=== PATIENT | female | born 1985 | race Caucasian/White ===

== ENCOUNTER → 2019-10-01 10:27 | Outpatient (BNVA) | payer OTHER, SELFPAY | PROVIDERS: Family Provider Electrodiagnostic Medicine; PCP Electrodiagnostic Medicine; Visit Provider Nurse Practitioner Family | DX: J06.9 Acute upper respiratory infection, unspecified (principal); R05 Cough | CPT/HCPCS: 87804 ==

== ENCOUNTER → 2020-03-07 14:00 | Outpatient (BNVA) | payer OTHER, SELFPAY | PROVIDERS: Family Provider Electrodiagnostic Medicine; PCP Electrodiagnostic Medicine; Visit Provider Podiatrist Foot & Ankle Surgery | DX: M79.671 Pain in right foot (principal); M25.571 Pain in right ankle and joints of right foot | CPT/HCPCS: 73600; 73630 ==

== ENCOUNTER → 2020-05-03 15:23 | Outpatient (BNVA) | payer OTHER, SELFPAY | PROVIDERS: Family Provider Electrodiagnostic Medicine; PCP Electrodiagnostic Medicine; Referring Provider Dermatology; Visit Provider Dermatology | DX: L71.9 Rosacea, unspecified (principal); D22.9 Melanocytic nevi, unspecified; L85.8 Other specified epidermal thickening | CPT/HCPCS: 99203; 99204 ==

== ENCOUNTER 2020-08-13 11:59 | Emergency (ER) | payer OTHER, SELFPAY ==
[2020-08-13] VITALS (10 sets, daily range): BP systolic 101–127; BP diastolic 70–88; PULSE 92–126; RESP 15–20; TEMP 37.2; O2SAT 95–97; BMI 43.0
--- NOTE | 2020-08-13 12:33 | XRR_ITS ---
PROCEDURE INFORMATION: Exam: XR Chest, 1 View Exam date and time: 08/13/2020 1:21 PM Age: 35 years old Clinical indication: Shortness of breath; Additional info: Covid infection TECHNIQUE: Imaging protocol: XR of the chest Views: 1 view. COMPARISON: CR Chest 1 [place] [id number] 11/10/2016 1:41 PM FINDINGS: Lungs: Unremarkable. No consolidation. Pleural space: Unremarkable. No pleural effusion. No pneumothorax. Heart/Mediastinum: Unremarkable. No cardiomegaly. Bones/joints: Unremarkable. XR/XR chest 1V portable [id number] IMPRESSION: No acute findings.
--- NOTE | 2020-08-13 12:49 | ECG_ITS ---
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
--- NOTE | 2020-08-13 12:50 | W.ED.COVID ---
HPI - COVID General: Chief Complaint: COVID symptoms Stated Complaint: Covid +/dehydrated/trouble eating Time Seen by Provider: 08/13/20 12:43 Source: patient Mode of arrival: ambulatory Limitations: no limitations Triage information: Has fever, cough or shortness of breath. Exposure to COVID + person last 14 days History of Present Illness: HPI Narrative: Ms. Kirkpatrick is a nice 35-year-old female who comes in complaining of nausea, vomiting, diarrhea and decreased appetite. The patient has had decreased appetite as well. Patient states that she feels extremely dehydrated. She has had persistent diarrhea. Of note the patient is on prednisone daily for polymyalgia rheumatica. She did not have her steroids increased during this time. She was seen at [facility] where she tested positive and was told she has an ear infection and was started on Zithromax. Patient denies any other complaints or concerns at this time. She is unaware of any exacerbating or alleviating factors. COVID 19 common symptoms: positive fever(s), chills, non-productive cough, dyspnea, fatigue, body aches, nausea and diarrhea; negative productive cough, headache(s), throat pain or vomiting COVID 19 other sytmptoms: negative chest pain or confusion COVID Results: No Data to Display Review of Systems Const: Reports: fever(s), chills, body aches, fatigue and malaise; Denies: diaphoresis Eyes: Denies: change in vision, blurry vision, photophobia, eye discomfort, eye discharge, eye redness or yellow eyes ENMT: Denies: throat pain, odynophagia, hoarseness, swelling of lips/tongue, ear or mastoid pain, ear discharge, change in hearing or nasal discharge Card: Denies: chest pain, palpitations, irregular heart rhythm, edema, lightheadedness, syncope, pre-syncope, dyspnea on exertion or orthopnea Resp: Reports: dyspnea and non-productive cough; Denies: productive cough, wheezing, hemoptysis or chest congestion GI: Reports: nausea and diarrhea; Denies: abdominal pain, vomiting, hematemesis, coffee ground emesis, heartburn, constipation, GI cramping, hematochezia or melena : Denies: flank pain, dysuria, urinary frequency, urinary urgency or hematuria Musc: Denies: neck pain, back pain, extremity pain, extremity swelling, joint pain, joint swelling, joint redness, joint warmth or joint stiffness Skin/Breast: Denies: rash, pruritus, erythema, skin pain or skin tenderness Neuro: Denies: headache(s), numbness in extremities, weakness in extremities, sensory changes, lack of coordination, difficulty walking, dizziness, vertigo, confusion, Slurred speech present or seizure-like activity Hayes/Lymph: Denies: easy bruising, easy bleeding, petechiae, purpura or enlarged lymph nodes All/Imm: Denies: urticaria, throat swelling, tongue swelling, facial swelling or acute wheezing PFSH ED PFSH: Medical History (Updated 08/13/20 @ 18:04 by Flakita Joya) Anxiety Asthma Atypical migraine H/O polymyalgia rheumatica Surgical History (Updated 08/13/20 @ 12:51 by Flakita Joya) History of hysterectomy Family History Other Hypertension Social History Smoking and tobacco status: never smoked Alcohol intake: never History of recent travel: No Physical Exam Const: COMMON NORMALS: no acute distress, patient oriented x3, no limitations and alert GENERAL APPEARANCE: cooperative HENMT: COMMON NORMALS: normocephalic, atraumatic, external ears normal, EAC's normal and Normal external nose present HEAD & SCALP: normal to inspection, normocephalic and atraumatic FACE & SINUS: normal facial exam and face symmetric NOSE: Normal external nose present and Normal nares present EXTERNAL EAR: Yes external ears normal EXTERNAL AUDITORY CANAL: EAC's normal MOUTH: Normal oral and palatal mucosa present, lip normal and tongue normal Eye: COMMON NORMALS: Equal, round and reactive pupils present and conjunctivae normal GENERAL EYE: appearance normal, both eyes and all related structures ALIGNMENT: Yes alignment normal PERIORBITAL: periorbital findings normal EYELID: eyelids normal CONJUNCTIVA: Yes conjunctivae normal SCLERA: sclerae normal PUPIL: Yes Equal, round and reactive pupils present Neck/C-Spine: COMMON NORMALS: full ROM, no lymphadenopathy, supple, no meningeal signs and no JVD GENERAL: Yes normal visual inspection and Yes trachea midline Chest: COMMONS NORMALS: normal inspection of the chest and normal palpation of entire chest wall Resp: COMMON NORMALS: normal respiratory effort, No retractions, No use of accessory muscles and clear to auscultation bilaterally EFFORT & INSPECTION: Yes able to speak in complete sentences and Yes symmetric chest movement AUSCULTATION: clear to auscultation bilaterally, no crackles, no rales, no rhonchi and no wheezes Cardio: COMMON NORMALS: no JVD, regular rate, regular rhythm, S1 normal heart sound present and S2 normal heart sound present RATE: regular rate RHYTHM: regular rhythm HEART SOUNDS: S1 normal heart sound present, S2 normal heart sound present, no click, no gallops, no murmurs and no rubs GI: COMMON NORMALS: Soft to palpation and No hepatosplenomegaly present PALPATION: Yes Soft to palpation, No Tenderness to palpation present (GI), No Guarding due to palpation present (GI), No Rigid due to palpation, Yes No hepatosplenomegaly present, No Hernia present, No Palpable mass present and No Pulsatile mass present : COMMON NORMALS: Yes no CVA tenderness BLADDER/KIDNEY EXAM: Yes no CVA tenderness EXTERNAL FEMALE EXAM: No Hernia present Back/Pelvis: COMMON NORMALS: no CVA tenderness, thoracic and lumbar spine normal to inspection, no thoracic nor lumbar tenderness and thoraco-lumbar ROM normal Extremity: COMMON NORMALS: normal to inspection, full ROM, capillary refill normal, no joint enlargement, no clubbing, cyanosis or edema and no calf tenderness Neuro: COMMON NORMALS: patient oriented x3, CN's II-XII intact bilaterally, moves all extremities, no focal motor deficits and no sensory deficits noted SENSORIUM/ORIENTATION: Yes alert MENINGEAL SIGNS: Yes no meningeal signs SPEECH: speech normal Psych: COMMON NORMALS: mental status grossly normal, Normal thought process present, cooperative, normal affect, speech normal and activity/motor behavior normal SPEECH: Yes normal speech THOUGHT PROCESS: Normal thought process present Skin: COMMON NORMALS: no rashes or lesions noted, turgor normal, no jaundice, no petechiae and no mottling GENERAL SKIN EXAM: no rashes or lesions noted and turgor normal Course Vital Signs: Vital signs: Vital Signs Temperature 99.0 F 08/13/20 12:32 Pulse Rate 106 H 08/13/20 14:35 Respiratory Rate 20 H 08/13/20 14:28 Blood Pressure 115/88 08/13/20 13:18 Pulse Oximetry 97 08/13/20 14:28 MDM - COVID MDM Narrative: Medical decision making narrative: 1632 -patient is feeling better and would like to go home. She understands we will have to finish the potassium infusion to recheck this. She agrees to recheck this at that time. 1803 - Medical Records: Attestation: I reviewed the patient's medical records. Lab Data: Attestation: I reviewed the patient's lab results. Labs: Lab Results 08/13/20 08/13/20 08/13/20 Range/Units 13:21 13:23 13:23 WBC 4.3 (4.0-10.0) 10^3/ uL RBC 5.91 H (4.1-5.3) 10^6/u L Hgb 18.0 H (11.5-15.3) g/dL Hct 50.4 H (37.0-47.0) % MCV 85.3 (81-99) fL MCH 30.5 (28.0-34.0) pg MCHC 35.7 (30.0-36.0) g/dL RDW 11.9 L (12.1-15.1) % Plt Count 190 (130-400) 10^3/c mm MPV 10.9 H (7.4-10.4) fL Neut % (Auto) 56.6 % Lymph % (Auto) 34.5 % [place] % (Auto) 8.2 % Eos % (Auto) 0.0 % Baso % (Auto) 0.5 % Neut # (Auto) 2.43 (1.8-7.7) 10^3/u L Lymph # (Auto) 1.5 (0.8-4.8) 10^3/u L [place] # (Auto) 0.4 (0.2-0.9) 10^3/u L Eos # (Auto) 0.0 (0.0-0.8) 10^3/u L Baso # (Auto) 0.0 (0.0-0.1) 10^3/u L Nucleated RBC % (a uto) 0 % Nucleated RBCs # 0.0 /100WBC PT (12.1-14.9) SECO NDS INR (0.8-1.2) Fibrinogen (174-498) mg/dL D-Dimer (0-0.59) ug/mIFE U Specimen Type Arterial Sample Site Radial, right ABG pH 7.54 H (7.35-7.45) ABG pCO2 27.6 L (35-45) mmHg ABG pO2 89.2 (80.0-100.0) mmH g ABG HCO3 23.4 (22-26) mmol/L ABG Base Excess 2.4 H (-2.0-2.0) mmol/ L Maurilio Test Pos Hematocrit 57.7 H (37-47) % O2 Delivery Device Room air FiO2 21.0 % Cash Van Salesperson ID [place]ro Sodium 133 L (136-145) mmol/L Potassium 2.7 L* (3.5-5.1) mmol/L Chloride 93 L (98-107) mmol/L Carbon Dioxide 25 (22-29) mmol/L Anion Gap 17.7 (5-19) BUN 8 (6-20) mg/dL Creatinine 0.8 (0.5-0.9) mg/dL GFR Calculation 81.2 L (90-130) mL/min Glucose 115 (65-115) mg/dL Calculated Osmolal ity 275 L (285-295) mOsm/k g Lactic Acid (0.5-2.2) mmol/L Calcium 8.9 (8.5-10.5) mg/dL Magnesium 1.9 (1.7-2.3) mg/dL Total Bilirubin 0.3 (0.15-1.2) mg/dL AST 28 (0-32) U/L ALT 44 H (0-33) U/L Alkaline Phosphata se 50 (35-105) IU/L Lactate Dehydrogen ase 308 H (135-214) U/L Troponin T Gen 5 n g/L C-Reactive Protein 33.7 H (0.0-4.9) mg/L Total Protein 7.2 (6.6-8.7) g/dL Albumin 4.2 (3.5-5.2) g/dL Globulin 3.0 (1.3-4.6) g/dL Lipase 75 H (13-60) U/L HCG, Qual (Negative) Influenza Type A A g (Negative) Influenza Type B A g (Negative) 08/13/20 08/13/20 08/13/20 Range/Units 13:23 13:23 13:23 WBC (4.0-10.0) 10^3/ uL RBC (4.1-5.3) 10^6/u L Hgb (11.5-15.3) g/dL Hct (37.0-47.0) % MCV (81-99) fL MCH (28.0-34.0) pg MCHC (30.0-36.0) g/dL RDW (12.1-15.1) % Plt Count (130-400) 10^3/c mm MPV (7.4-10.4) fL Neut % (Auto) % Lymph % (Auto) % [place] % (Auto) % Eos % (Auto) % Baso % (Auto) % Neut # (Auto) (1.8-7.7) 10^3/u L Lymph # (Auto) (0.8-4.8) 10^3/u L [place] # (Auto) (0.2-0.9) 10^3/u L Eos # (Auto) (0.0-0.8) 10^3/u L Baso # (Auto) (0.0-0.1) 10^3/u L Nucleated RBC % (a uto) % Nucleated RBCs # /100WBC PT 13.10 (12.1-14.9) SECO NDS INR 0.97 (0.8-1.2) Fibrinogen 563 H (174-498) mg/dL D-Dimer 0.52 (0-0.59) ug/mIFE U Specimen Type Sample Site ABG pH (7.35-7.45) ABG pCO2 (35-45) mmHg ABG pO2 (80.0-100.0) mmH g ABG HCO3 (22-26) mmol/L ABG Base Excess (-2.0-2.0) mmol/ L Maurilio Test Hematocrit (37-47) % O2 Delivery Device FiO2 % Cash Van Salesperson ID Sodium (136-145) mmol/L Potassium (3.5-5.1) mmol/L Chloride (98-107) mmol/L Carbon Dioxide (22-29) mmol/L Anion Gap (5-19) BUN (6-20) mg/dL Creatinine (0.5-0.9) mg/dL GFR Calculation (90-130) mL/min Glucose (65-115) mg/dL Calculated Osmolal ity (285-295) mOsm/k g Lactic Acid (0.5-2.2) mmol/L Calcium (8.5-10.5) mg/dL Magnesium (1.7-2.3) mg/dL Total Bilirubin (0.15-1.2) mg/dL AST (0-32) U/L ALT (0-33) U/L Alkaline Phosphata se (35-105) IU/L Lactate Dehydrogen ase (135-214) U/L Troponin T Gen 5 n g/L Cancelled C-Reactive Protein (0.0-4.9) mg/L Total Protein (6.6-8.7) g/dL Albumin (3.5-5.2) g/dL Globulin (1.3-4.6) g/dL Lipase (13-60) U/L HCG, Qual Negative (Negative) Influenza Type A A g (Negative) Influenza Type B A g (Negative) 08/13/20 08/13/20 08/13/20 Range/Units 13:23 13:23 14:30 WBC (4.0-10.0) 10^3/ uL RBC (4.1-5.3) 10^6/u L Hgb (11.5-15.3) g/dL Hct (37.0-47.0) % MCV (81-99) fL MCH (28.0-34.0) pg MCHC (30.0-36.0) g/dL RDW (12.1-15.1) % Plt Count (130-400) 10^3/c mm MPV (7.4-10.4) fL Neut % (Auto) % Lymph % (Auto) % [place] % (Auto) % Eos % (Auto) % Baso % (Auto) % Neut # (Auto) (1.8-7.7) 10^3/u L Lymph # (Auto) (0.8-4.8) 10^3/u L [place] # (Auto) (0.2-0.9) 10^3/u L Eos # (Auto) (0.0-0.8) 10^3/u L Baso # (Auto) (0.0-0.1) 10^3/u L Nucleated RBC % (a uto) % Nucleated RBCs # /100WBC PT (12.1-14.9) SECO NDS INR (0.8-1.2) Fibrinogen (174-498) mg/dL D-Dimer (0-0.59) ug/mIFE U Specimen Type Sample Site ABG pH (7.35-7.45) ABG pCO2 (35-45) mmHg ABG pO2 (80.0-100.0) mmH g ABG HCO3 (22-26) mmol/L ABG Base Excess (-2.0-2.0) mmol/ L Maurilio Test Hematocrit (37-47) % O2 Delivery Device FiO2 % Cash Van Salesperson ID Sodium (136-145) mmol/L Potassium (3.5-5.1) mmol/L Chloride (98-107) mmol/L Carbon Dioxide (22-29) mmol/L Anion Gap (5-19) BUN (6-20) mg/dL Creatinine (0.5-0.9) mg/dL GFR Calculation (90-130) mL/min Glucose (65-115) mg/dL Calculated Osmolal ity (285-295) mOsm/k g Lactic Acid 1.2 (0.5-2.2) mmol/L Calcium (8.5-10.5) mg/dL Magnesium (1.7-2.3) mg/dL Total Bilirubin (0.15-1.2) mg/dL AST (0-32) U/L ALT (0-33) U/L Alkaline Phosphata se (35-105) IU/L Lactate Dehydrogen ase (135-214) U/L Troponin T Gen 5 n g/L 6 C-Reactive Protein (0.0-4.9) mg/L Total Protein (6.6-8.7) g/dL Albumin (3.5-5.2) g/dL Globulin (1.3-4.6) g/dL Lipase (13-60) U/L HCG, Qual (Negative) Influenza Type A A g Negative (Negative) Influenza Type B A g Negative (Negative) Imaging Data: CXR: Attestation: I personally reviewed and interpreted this imaging study as follows: My impression: No acute cardiopulmonary findings. EKG Data: EKG 1: Attestation: I personally reviewed and interpreted this EKG as follows: EKG interpretation date: 08/13/20 EKG interpretation time: 13:52 Interpretation: Normal sinus rhythm at 96 beats a minute, normal axis, no blocks, normal intervals, nonspecific ST and T wave changes. COVID Results: No Data to Display Discharge Plan Discharge Patient Disposition: Home Clinical Impression: Acute hypokalemia, COVID-19 virus infection Condition: Stable Prescriptions: No Action topiramate [Topamax] 100 mg tablet 100 mg PO DAILY RF: 0 prednisone 10 mg tablet 7.5 mg PO DAILY RF: 0 diltiazem HCl 240 mg capsule,extended release 24hr 240 mg PO DAILY RF: 0 hydrochlorothiazide 12.5 mg tablet 12.5 mg PO DAILY RF: 0 escitalopram oxalate [Lexapro] 10 mg tablet 10 mg PO DAILY RF: 0 zolmitriptan [Zomig ZMT] 5 mg tablet,disintegrating 5 mg PO Q2H PRN (Reason: Migraine Headache) RF: 0 Rhofade 1 % cream 1 applic TOPICAL DAILY Qty: 30 RF: 3 cyclobenzaprine 10 mg tablet 10 mg PO TID PRN (Reason: muscle spasm) Qty: 30 RF: 1 ondansetron HCl [Zofran] 8 mg tablet 8 mg PO Q8H PRN (Reason: nausea and vomiting) Qty: 30 RF: 1 ketorolac 10 mg tablet 10 mg PO Q6H PRN (Reason: pain) 5 Days Qty: 20 RF: 0 Vitamin D2 1,250 mcg (50,000 unit) Capsule 1,250 mcg PO Q7D RF: 0 Discharge Orders: Discharge Order (Routine); Ordered 08/13/20 Ordered By: Flakita Joya Referrals: Preston Dyer DO [Primary Care Provider] - 1-3 days Discharge Diet: Usual diet Discharge Activity: Increase activity as tolerated Patient Instructions: Viral Pneumonia (ED), Hypokalemia (ED) Activity Restrictions/Additional Instructions: Please return to the ER immediately for any of the signs or symptoms listed on your discharge instruction sheets, worsening/changing of your symptoms, you are not getting better as quickly as expected, or for ANY other cause or concerns. Coding Level of Care Code ED Glass Deposition Tender for Chg Fwd Exam Comprehensive
[2020-08-13] MEDS: sodium chloride 0.9% 1,000 ML 999 ML IV (13:05)
[2020-08-13] MEDS: ondansetron 2 mg/ML SDV 2 mL 4 MG IVP (13:10)
[2020-08-13] MEDS: hydrocortisone 100 mg/2 mL SDV IVP (13:10)
[2020-08-13 13:31] LABS: Basophils % 0.5 %; Hematocrit 50.4 % (37.0-47.0); Lymphocytes # 1.5 10^3/uL (0.8-4.8); Lymphocytes % 34.5 %; Mean Corpuscular HGB Conc 35.7 g/dL (30.0-36.0); Mean Corpuscular Hemoglobin 30.5 pg (28.0-34.0); Mean Corpuscular Volume 85.3 fL (81-99); Mean Platelet Volume 10.9 fL (7.4-10.4); Monocytes # 0.4 10^3/uL (0.2-0.9); Monocytes % 8.2 %; Neutrophils # 2.43 10^3/uL (1.8-7.7); Neutrophils % 56.6 %; Nucleated Red Blood Cells % 0 %; Platelet Count 190 10^3/cmm (130-400); Red Blood Count 5.91 10^6/uL (4.1-5.3); Red Cell Distribution Width 11.9 % (12.1-15.1); White Blood Count 4.3 10^3/uL (4.0-10.0)
[2020-08-13 13:34] LABS: ABG PCO2 27.6 mmHg (35-45); ABG PH Result 7.54 (7.35-7.45); Arterial Blood Gas Hematocrit 57.7 % (37-47); Base Excess ABG 2.4 mmol/L (-2.0-2.0); Blood Gas Allen Test Pos; Blood Gas Operator Identificat MONRO; Blood Gas Sample Site Radial, right; Blood Gas Sample Type Arterial; HCO3 ABG 23.4 mmol/L (22-26); Oxygen Device ROOM AIR; PO2 ABG 89.2 mmHg (80.0-100.0)
[2020-08-13 13:49] LABS: HCG, Serum Qual Negative (Negative)
[2020-08-13 13:53] LABS: INR 0.97 (0.8-1.2)
[2020-08-13 13:57] LABS: Alanine Aminotransferase 44 U/L (0-33); Albumin Level 4.2 g/dL (3.5-5.2); Alkaline Phosphatase 50 IU/L (35-105); Blood Urea Nitrogen 8 mg/dL (6-20); C Reactive Protein 33.7 mg/L (0.0-4.9); Calcium 8.9 mg/dL (8.5-10.5); Carbon Dioxide 25 mmol/L (22-29); Chloride 93 mmol/L (98-107); D Dimer 0.52 ug/mIFEU (0-0.59); Glomerular Filtration Rate 81.2 mL/min (90-130); Glucose 115 mg/dL (65-115); Lipase 75 U/L (13-60); Magnesium 1.9 mg/dL (1.7-2.3); Osmolality Calculated 275 mOsm/kg (285-295); Sodium 133 mmol/L (136-145); Total Bilirubin 0.3 mg/dL (0.15-1.2); Total Protein 7.2 g/dL (6.6-8.7)
[2020-08-13 14:00] LABS: Troponin T (5th) Once 6 ng/L (0-10)
[2020-08-13 14:01] LABS: Fibrinogen 563 mg/dL (174-498)
[2020-08-13 14:10] LABS: Anion Gap 17.7 (5-19); Aspartate Amino Transferase 28 U/L (0-32); Lactate Dehydrogenase 308 U/L (135-214)
[2020-08-13 14:12] LABS: Potassium 2.7 mmol/L (3.5-5.1)
[2020-08-13 14:18] LABS: Influenza A by IFA Negative (Negative); Influenza B by IFA Negative (Negative)
[2020-08-13] MEDS: albuterol 8 gm MDI 6 PUFF INHALATION (14:28)
[2020-08-13] MEDS: promethazine-cod syrup 6.25-10mg/5 mL UDC PO (14:45)
[2020-08-13] MEDS: potassium chloride premix 100 ML 50 MEQ IV (15:14)
[2020-08-13] MEDS: potassium chloride oral liq 20 mEq/15 mL UDC 60 MEQ PO (15:14)
[2020-08-13 15:19] LABS: Lactic Sepsis W/Reflex 1.2 mmol/L (0.5-2.2)
[2020-08-13 18:07] LABS: Anion Gap 14.8 (5-19); Blood Urea Nitrogen 8 mg/dL (6-20); Calcium 8.3 mg/dL (8.5-10.5); Carbon Dioxide 22 mmol/L (22-29); Chloride 102 mmol/L (98-107); Glomerular Filtration Rate 94.7 mL/min (90-130); Glucose 151 mg/dL (65-115); Osmolality Calculated 281 mOsm/kg (285-295); Potassium 3.8 mmol/L (3.5-5.1); Sodium 135 mmol/L (136-145)
[2020-08-13 18:15] LABS: Urine Appearance SL Hazy (CLEAR); Urine Color Yellow (Yellow)
[2020-08-13 18:16] LABS: Add Urine Microscopic? YES; Bilirubin Urine Neg (Negative); Blood Urine Neg (Negative); Glucose Urine UA Norm (Normal); Ketones Urine 1+ (Negative); Leukocyte Esterase Urine Negative (Negative); Nitrate Urine Negative (Negative); Protein Urine Neg (Negative); Specific Gravity, Urine 1.005 (1.005-1.030); Urobilinogen Urine Norm (Negative); pH Urine 8 (5-7)
[2020-08-13 18:21] LABS: Sulfosalicylic Acid Urine Negative (Negative)
[2020-08-13 18:22] LABS: Add Urine Culture? No; Bacteria Urine 2+ /hpf; Mucus Urine 1+ /hpf
== END 2020-08-13 18:40 | disposition home or self-care (01) ==
PROVIDERS: Emergency Provider Emergency Medicine; PCP Electrodiagnostic Medicine
DX: U07.1 COVID-19 (principal); E87.6 Hypokalemia
CPT/HCPCS: 12345; 36600; 71045; 80048; 80053; 81001; 82803; 83605; 83615; 83690; 83735; 84484; 84703; 85025; 85378; 85384; 85610; 86140; 87804; 93005; 94640; 96365; 96366; 96375; 99283; J1720; J2405; J3480; J3535; J7030

== ENCOUNTER 2020-11-08 10:01 | Emergency (ER) | payer OTHER, SELFPAY ==
[2020-11-08 10:10] VITALS: BP 136/91; PULSE 97; RESP 16; TEMP 36.5; O2SAT 97; BMI 41.2
--- NOTE | 2020-11-08 10:17 | ED_ITS ---
HPI - Fall General: Chief Complaint: Fall Stated Complaint: FALL Time Seen by Provider: 11/08/20 10:02 Source: patient Mode of arrival: ambulatory Limitations: no limitations History of Present Illness: HPI Narrative: Patient is a nice 35-year-old female who presents to ED today for evaluation following a fall that happened at work just [employer]. Patient works at the [employer] [facility]. Patient tells me in July she contracted COVID and since that infection she has gradually and progressively developed numbness and weakness affecting her right side. She states she has a right sided foot drop. She states because of these findings she falls frequently. She has been evaluated by Dr. Crocker this month for the symptoms. Please see her specific note for her exam findings. Patient tells me she is scheduled for a head MRI as well as nerve conduction studies for further evaluation of these symptoms. She tells me she will follow up with Dr. Crocker and Dr. Urena after the studies are complete. She is also been evaluated by her PCP Dr. Dyer. Patient is not requesting evaluation for the symptoms today. She tells me she is only here because the orthopedic clinic made her come. She tells me yesterday she fell and struck her head with positive LOC for 5 minutes. She tells me at work today when she struck her head she did not lose consciousness. She reports some generalized soreness after the fall but nothing that she feels warrants x-rays. complaint: fall Onset (ago): minute(s) Fall from: standing Fall witnessed: yes, by bystander Place fall occurred: work Loss of consciousness: Yes (last night; none during fall today) Prolonged down time: no Symptoms prior to fall: none Context: other (R leg gave out ) Associated symptoms-after fall: Reports difficulty walking and headache(s); Denies chest pain, confusion, neck pain or vertigo Review of Systems Const: Denies: fever(s) Eyes: Denies: change in vision, blurry vision, photophobia, floaters or seeing flashes Card: Denies: chest pain Resp: Denies: dyspnea GI: Denies: nausea or vomiting Musc: Denies: neck pain, back pain, extremity pain, extremity swelling, joint pain or joint swelling Neuro: Reports: headache(s), weakness in extremities, sensory changes, difficulty walking and frequent falls; Denies: lack of coordination, dizziness, vertigo, confusion, Slurred speech present, difficulty communicating thoughts or seizure-like activity PFSH ED PFSH: Medical History Anxiety Asthma Atypical migraine H/O polymyalgia rheumatica Surgical History History of hysterectomy Family History Other Hypertension Social History Smoking and tobacco status: never smoked Alcohol intake: never History of recent travel: No Physical Exam Const: COMMON NORMALS: no acute distress, patient oriented x3, no limitations and alert GENERAL APPEARANCE: cooperative ORIENTATION/CONSCIOUSNESS: Yes awake, Yes oriented to person, Yes oriented to place and Yes oriented to time HENMT: COMMON NORMALS: normocephalic and atraumatic HEAD & SCALP: normal to inspection, normocephalic and atraumatic Neck/C-Spine: COMMON NORMALS: full ROM CERVICAL SPINE: Yes cervical ROM normal, No pain with cervical ROM, No Cervical spine tenderness and No Paracervical muscle tenderness Back/Pelvis: COMMON NORMALS: thoracic and lumbar spine normal to inspection, no thoracic nor lumbar tenderness and thoraco-lumbar ROM normal Extremity: COMMON NORMALS: normal to inspection and full ROM NARRATIVE EXTREMITY EXAM: pt reports generalized soreness to R elbow, lower back, R hip but no specific bony tenderness noted; she states pain is not enough that she feels XRs are warranted Neuro: COMMON NORMALS: patient oriented x3 SENSORIUM/ORIENTATION: Yes alert, Yes oriented to person, Yes oriented to place and Yes oriented to time OTHER: full neurologic exam was not performed today as pt has no new neurological complaints following her fall; extensive exam performed by Dr. Crocker recently Skin: NARRATIVE SKIN EXAM: no abrasions/lacerations noted Course Vital Signs: Vital signs: Vital Signs Temperature 97.7 F 11/08/20 10:10 Pulse Rate 84 11/08/20 11:43 Respiratory Rate 16 11/08/20 11:43 Blood Pressure 129/84 11/08/20 11:43 Pulse Oximetry 100 11/08/20 11:43 MDM - Fall MDM Narrative: Medical decision making narrative: Patient is a nice 35-year-old female who presented to the emergency department for evaluation following a fall at work. Patient tells me she is fallen several times since July. She attributes these falls to gradual and progressive weakness of her right side. Patient has been evaluated by Dr. Crocker who has ordered a head MRI and nerve conduction studies. The plan will be for patient to follow-up with her as well as Dr. Urena after these are resulted. There was no LOC during her fall today while at work however she tells me she fell yesterday in her home and had positive LOC. Because of this I did elect to proceed with CT imaging which was negative. Patient is not requesting any further work-up regarding her right sided symptoms today. Return to ED precautions given. Registration did contact [facility] screening representative who stated this will NOT be a Worker's Comp injury. Imaging Data^: CT Head: Radiologist's impression: [address] [place] [address] CT Scan Report Signed Patient: Nhi Kirkpatrick Unit #: [id number] : 1985 Age/Sex: 35 / F ADM Date: 11/08/20 Loc: ER Room/Bed: Attending Dr: Ordering Provider/Ordering MD: Gissell Concepcion Date of Service: 11/08/20 Procedure(s): CT head wo con* [id number] Accession Number(s): [id number] Report Number: [id number] WS: [id number] CT HEAD TECHNIQUE: Noncontrast CT of the head obtained from the skullbase to the vertex. CLINICAL INFORMATION: fall/LOC COMPARISON: DLP: 727.[address] scans at [facility] use at least one of these dose optimization techniques: automated exposure control; mA and/or kV adjustment per patient size (includes targeted exams where dose is matched to clinical indication); or iterative reconstruction. FINDINGS: No evidence of intracranial hemorrhage or mass effect. Ventricular system and basal cisterns are patent. No extra-axial fluid collections. No evidence of mass or mass effect. Normal garza-white differentiation. Paranasal sinuses and mastoid air cells are well aerated. .Normal visualized soft tissues. CT/CT head wo con* [id number] IMPRESSION: 1. No evidence of intracranial hemorrhage or mass effect. 2. Normal garza-white differentiation. 3. No acute intracranial findings. Dictated By: Sumeet Hernandez MD Signed By: Sumeet Hernandez MD Signed Date/Time: 11/08/20 1054 DD/ 1050 Discharge Plan Discharge Patient Disposition: Home Clinical Impression: Contusion of scalp Qualifiers: Encounter type: initial encounter Qualified Code(s): S00.03XA - Contusion of scalp, initial encounter Condition: Stable Prescriptions: No Action topiramate [Topamax] 100 mg tablet 100 mg PO DAILY RF: 0 prednisone 10 mg tablet 7.5 mg PO DAILY RF: 0 diltiazem HCl 240 mg capsule,extended release 24hr 240 mg PO DAILY RF: 0 hydrochlorothiazide 12.5 mg tablet 12.5 mg PO DAILY RF: 0 escitalopram oxalate [Lexapro] 10 mg tablet 10 mg PO DAILY RF: 0 zolmitriptan [Zomig ZMT] 5 mg tablet,disintegrating 5 mg PO Q2H PRN (Reason: Migraine Headache) RF: 0 Rhofade 1 % cream 1 applic TOPICAL DAILY Qty: 30 RF: 3 cyclobenzaprine 10 mg tablet 10 mg PO TID PRN (Reason: muscle spasm) Qty: 30 RF: 1 ondansetron HCl [Zofran] 8 mg tablet 8 mg PO Q8H PRN (Reason: nausea and vomiting) Qty: 30 RF: 1 ketorolac 10 mg tablet 10 mg PO Q6H PRN (Reason: pain) 5 Days Qty: 20 RF: 0 Vitamin D2 1,250 mcg (50,000 unit) Capsule 1,250 mcg PO Q7D RF: 0 Discharge Orders: Discharge ED (Routine); Ordered 11/08/20 Ordered By: Gissell Concepcion Referrals: Preston Dyer DO [Primary Care Provider] - Coding Level of Care Code ED Coiled Tubing Supervisor for Roly Lebron
--- NOTE | 2020-11-08 10:27 | CT_ITS ---
WS: [id number] CT HEAD TECHNIQUE: Noncontrast CT of the head obtained from the skullbase to the vertex. CLINICAL INFORMATION: fall/LOC COMPARISON: DLP: 727.[address] scans at [facility] use at least one of these dose optimization techniques: automat ed exposure control; mA and/or kV adjustment per patient size (includes targeted exams where dose is matched to clinical indication); or iterative reconstruction. FINDINGS: No evidence of intracranial hemorrhage or mass effect. Ventricular system and basal cisterns are lyn nt. No extra-axial fluid collections. No evidence of mass or mass effect. Normal garza-white differen tiation. Paranasal sinuses and mastoid air cells are well aerated. .Normal visualized soft tissues. CT/CT head wo con* [id number] IMPRESSION: 1. No evidence of intracranial hemorrhage or mass effect. 2. Normal garza-white differentiation. 3. No acute intracranial findings.
--- NOTE | 2020-11-08 10:40 | PC.NURSE ---
Pt to CT, refused WC
[2020-11-08 11:43] VITALS: BP 129/84; PULSE 84; RESP 16; O2SAT 100
== END 2020-11-08 11:44 | disposition home or self-care (01) ==
PROVIDERS: Emergency Provider Physician Assistant; PCP Electrodiagnostic Medicine
DX: S00.03XA Contusion of scalp, initial encounter (principal); W19.XXXA Unspecified fall, initial encounter
CPT/HCPCS: 70450; 99282

== ENCOUNTER → 2020-11-09 07:58 | Outpatient (BNVA) | payer OTHER, SELFPAY | PROVIDERS: PCP Electrodiagnostic Medicine; Visit Provider Specialist | DX: G24.9 Dystonia, unspecified (principal); M21.371 Foot drop, right foot; R53.1 Weakness; R20.0 Anesthesia of skin; R20.2 Paresthesia of skin | CPT/HCPCS: 95913 ==

== ENCOUNTER 2020-11-15 07:02 | Outpatient (CLI) | payer OTHER, SELFPAY ==
--- NOTE | 2020-11-15 07:15 | MR_ITS ---
WS: [id number] MRI BRAIN WITHOUT CONTRAST HISTORY: M21.379 - Foot drop, unspecified foot COMPARISON: CT head 11/08/2020 TECHNIQUE: Diffusion imaging, multiplanar T1, T2 and FLAIR imaging obtained. No evidence for acute infarct or hemorrhage. Deutsch-white matter differentiation is normal. No remote or acute infarcts are volume loss. Ventricles and extra-axial spaces are normal. No inferior displacement of cerebellar tonsils. Sella turcica is empty. Posterior fossa is also unremarkable. Dural venous sinuses and chinik of Wilson demonstrate no abnormality on this unenhanced studies. Paranasal sinuses: Clear. Mastoid air cells: Normal. Calvarium and scalp: Intact. MR/MR head wo con* [id number] IMPRESSION: 1. Unremarkable noncontrast MRI brain. 2. No acute infarct or signal abnormalities.
== END 2020-11-15 07:03 | disposition home or self-care (01) ==
PROVIDERS: PCP Electrodiagnostic Medicine; Visit Provider Specialist
DX: M21.379 Foot drop, unspecified foot (principal)
CPT/HCPCS: 70551

== ENCOUNTER → 2020-11-15 09:27 | Outpatient (BNVA) | payer OTHER, SELFPAY | PROVIDERS: Visit Provider Internal Medicine | DX: G62.9 Polyneuropathy, unspecified (principal); R79.82 Elevated C-reactive protein (CRP); L40.9 Psoriasis, unspecified; M10.9 Gout, unspecified; M21.371 Foot drop, right foot; K13.79 Other lesions of oral mucosa; K21.9 Gastro-esophageal reflux disease without esophagitis; M25.50 Pain in unspecified joint; M79.10 Myalgia, unspecified site; Z79.52 Long term (current) use of systemic steroids | CPT/HCPCS: 99204 ==

== ENCOUNTER 2020-11-15 10:49 | Outpatient (CLI) | payer OTHER, SELFPAY ==
--- NOTE | 2020-11-15 11:05 | XR_ITS ---
WS: [id number] Right shoulder, 3 views, 11/15/2020 Clinical Data: SHOULDER PAIN Comparison: None. Findings: No fractures or dislocations are seen. The AC joint is normal. The adjacent right clavicle, right sca pula and ribs are normal. The soft tissues are unremarkable. XR/XR shoulder RT min 2V* [id number] Impression: Negative right shoulder.
--- NOTE | 2020-11-15 11:05 | XR_ITS ---
WS: [id number] Sacroiliac joints, 3 views, 11/15/2020 Clinical Data: SI PAIN/CRP ELEVATED Comparison: None. Findings: The SI joints are normal in width. No erosion, sclerosis or destruction is seen. There are no fractur es or dislocations. The adjacent visualized pelvis and hips are unremarkable. XR/XR sacroiliac jts m 3V [id number] Impression: Negative SI joints.
--- NOTE | 2020-11-15 11:05 | XR_ITS ---
WS: [id number] Left hand, 2 views, 11/15/2020 Clinical Data: HAND PAIN Comparison: None. Findings: No fractures or dislocations are seen. The soft tissues are unremarkable. The joint spaces are normal XR/XR hand LT 2V [id number] Impression: Negative left hand.
--- NOTE | 2020-11-15 11:05 | XR_ITS ---
WS: [id number] Right hip, AP and frog leg views, 11/15/2020 Clinical Data: HIP PAIN Comparison: None. Findings: No fractures or dislocations are seen. The right hip joint is intact. The soft tissues are not remark able. The adjacent pelvis is normal. XR/XR hip RT 2-3V wo/w pel* [id number] Impression: Negative right hip.
--- NOTE | 2020-11-15 11:05 | XR_ITS ---
WS: [id number] Left shoulder, 3 views, 11/15/2020 Clinical Data: SHOULDER PAIN Comparison: None. Findings: No fractures or dislocations are seen. The AC joint is normal. The adjacent left clavicle, left scapu la and ribs are normal. The soft tissues are unremarkable. XR/XR shoulder LT min 2V* [id number] Impression: Negative left shoulder.
--- NOTE | 2020-11-15 11:05 | XR_ITS ---
WS: [id number] Right hand, 2 views, 11/15/2020 Clinical Data: ELEVATED C REACTIVE PROTEIN/HAND PAIN Comparison: None. Findings: No fractures or dislocations are seen. The soft tissues are unremarkable. The joint space s are normal XR/XR hand RT 2V [id number] Impression: Negative right hand.
--- NOTE | 2020-11-15 11:05 | XR_ITS ---
WS: [id number] Left hip, AP and frog-leg views, 11/15/2020 Clinical Data: HIP PAIN Comparison: None. Findings: No fractures or dislocations are seen. The hip joint is intact. The soft tissues are not remarkable. The adjacent pelvis is normal. XR/XR hip LT 2-3V wo/w pel* [id number] Impression: Negative left hip.
[2020-11-15 12:29] LABS: Basophils # 0.1 10^3/uL (0.0-0.1); Basophils % 0.7 %; Eosinophils # 0.3 10^3/uL (0.0-0.8); Eosinophils % 4.1 %; Hematocrit 45.8 % (37.0-47.0); Hemoglobin 16.1 g/dL (11.5-15.3); Lymphocytes # 2.6 10^3/uL (0.8-4.8); Lymphocytes % 33.6 %; Mean Corpuscular HGB Conc 35.2 g/dL (30.0-36.0); Mean Corpuscular Hemoglobin 31.3 pg (28.0-34.0); Mean Corpuscular Volume 89.1 fL (81-99); Mean Platelet Volume 9.8 fL (7.4-10.4); Monocytes # 0.4 10^3/uL (0.2-0.9); Monocytes % 5.4 %; Neutrophils # 4.27 10^3/uL (1.8-7.7); Neutrophils % 56.1 %; Nucleated Red Blood Cells % 0 %; Platelet Count 371 10^3/cmm (130-400); Red Blood Count 5.14 10^6/uL (4.1-5.3); White Blood Count 7.6 10^3/uL (4.0-10.0)
[2020-11-15 12:39] LABS: Add Urine Microscopic? YES; Bacteria Urine 1+ /hpf; Bilirubin Urine Neg (Negative); Blood Urine Neg (Negative); Glucose Urine UA Norm (Normal); Ketones Urine Negative (Negative); Leukocyte Esterase Urine Negative (Negative); Nitrate Urine Negative (Negative); Protein Urine Neg (Negative); RBC Urine 0-4 /hpf (0-2); Squamous Epithelial Cell Urine 25-40 /hpf (0-5); Urine Appearance Cloudy (CLEAR); Urine Color Yellow (Yellow); Urobilinogen Urine Norm (Negative); pH Urine 7 (5-7)
[2020-11-15 12:40] LABS: Add Urine Culture? No
[2020-11-15 13:07] LABS: Hepatitis B Core AB, Total Non-Reactive (Nonreactive)
[2020-11-15 13:09] LABS: Alanine Aminotransferase 34 U/L (0-33); Albumin Level 4.5 g/dL (3.5-5.2); Alkaline Phosphatase 59 IU/L (35-105); Anion Gap 13.7 (5-19); Aspartate Amino Transferase 28 U/L (0-32); Blood Urea Nitrogen 9 mg/dL (6-20); C Reactive Protein 6.7 mg/L (0.0-4.9); Calcium 9.4 mg/dL (8.5-10.5); Carbon Dioxide 25 mmol/L (22-29); Chloride 102 mmol/L (98-107); Creatine Phosphokinase 65 U/L (26-192); Ferritin 102 ng/mL (15-150); Globulin 3.4 g/dL (1.3-4.6); Glomerular Filtration Rate 81.2 mL/min (90-130); Glucose 87 mg/dL (65-115); Iron 69 ug/dL (37-145); Osmolality Calculated 284 mOsm/kg (285-295); Phosphorus 3.4 mg/dL (2.5-4.5); Sodium 138 mmol/L (136-145); Thyroid Stimulating Hormone 0.95 uIU/mL (0.27-4.20); Total Bilirubin 0.3 mg/dL (0.15-1.2); Total Protein 7.9 g/dL (6.6-8.7); Uric Acid 5.5 mg/dL (2.4-5.7); Vitamin B12 373 pg/mL (232-1245)
[2020-11-15 13:22] LABS: Erythrocyte Sedimentation Rate 32 mm/hr (0-15)
[2020-11-15 13:27] LABS: Hepatitis C Virus Antibody Non-Reactive (Nonreactive)
[2020-11-15 13:37] LABS: Potassium 2.7 mmol/L (3.5-5.1)
[2020-11-15 15:53] LABS: Complement C3 153 mg/dL (90-180)
[2020-11-15 16:40] LABS: Hepatitis B Surface AB > 1000.0 (0-8.5)
[2020-11-16 12:55] LABS: Cyclic Citrullinated Peptide <16 UNITS
[2020-11-17 13:22] LABS: COMPLEMENT, TOTAL (CH50) >60 U/mL (31-60)
[2020-11-17 15:28] LABS: COMPLEMENT COMPONENT C3C 166 mg/dL (83-193); COMPLEMENT COMPONENT C4C 38 mg/dL (15-57)
[2020-11-19 22:32] LABS: ANCA Interp Negative (Negative)
[2020-11-20 15:28] LABS: ANA SCREEN, IFA NEGATIVE (NEGATIVE)
[2020-11-20 16:29] LABS: CENTROMERE B ANTIBODY <1.0 NEG AI (<1.0 NEG); JO-1 ANTIBODY <1.0 NEG AI (<1.0 NEG); RNP ANTIBODY 1.2 POS AI (<1.0 NEG); SCL-70 ANTIBODY <1.0 NEG AI (<1.0 NEG); SJOGREN'S ANTIBODY (SS-A) <1.0 NEG AI (<1.0 NEG); SM ANTIBODY <1.0 NEG AI (<1.0 NEG); SS-B <1.0 NEG AI (<1.0 NEG)
[2020-11-20 17:02] LABS: THYROID PEROXIDASE ANTIBODIES 5 IU/mL (<9)
[2020-11-20 22:37] LABS: DNA AB (DS) CRITHIDIA,IFA NEGATIVE (NEGATIVE)
== END 2020-11-15 10:50 | disposition home or self-care (01) ==
LOC: LAB 10:51 → RAD 10:55
PROVIDERS: PCP Electrodiagnostic Medicine; Visit Provider Internal Medicine
DX: G24.9 Dystonia, unspecified (principal); M21.379 Foot drop, unspecified foot; M25.512 Pain in left shoulder; M25.511 Pain in right shoulder; M25.559 Pain in unspecified hip; M53.3 Sacrococcygeal disorders, not elsewhere classified; M79.643 Pain in unspecified hand; Z11.59 Encounter for screening for other viral diseases
CPT/HCPCS: 36415; 72202; 73030; 73120; 73502; 80053; 81001; 82550; 82607; 82728; 83516; 83540; 83735; 84100; 84443; 84550; 85025; 85651; 86140; 86160; 86162; 86235; 86255; 86376; 86431; 86704; 86706; 86803

== ENCOUNTER → 2020-11-20 14:03 | Outpatient (BNVA) | payer OTHER, SELFPAY | PROVIDERS: PCP Electrodiagnostic Medicine; Visit Provider Nurse Practitioner | DX: G81.91 Hemiplegia, unspecified affecting right dominant side (principal); G62.9 Polyneuropathy, unspecified; G95.9 Disease of spinal cord, unspecified; Z86.16 Personal history of COVID-19 | CPT/HCPCS: 99204 ==

== ENCOUNTER 2020-11-21 14:50 | Outpatient (CLI) | payer OTHER, SELFPAY ==
[2020-11-21 16:22] LABS: Potassium 3.4 mmol/L (3.5-5.1); Thyroid Stimulating Hormone 0.73 uIU/mL (0.27-4.20); Total Protein 7.3 g/dL (6.6-8.7); Vitamin B12 318 pg/mL (232-1245)
[2020-11-21 17:17] LABS: Folate Level 11.3 ng/mL (4.8-37.3)
[2020-11-26 06:53] LABS: Methylmalonic Acid 160 nmol/L (87-318)
== END 2020-11-21 14:51 | disposition home or self-care (01) ==
LOC: LAB 14:52
PROVIDERS: Nurse Practitioner; PCP Electrodiagnostic Medicine; Visit Provider Electrodiagnostic Medicine
DX: E87.6 Hypokalemia (principal); G62.9 Polyneuropathy, unspecified
CPT/HCPCS: 36415; 82607; 82746; 83921; 84132; 84155; 84260; 84443

== ENCOUNTER 2020-11-30 18:49 | Emergency (ER) | payer OTHER, SELFPAY ==
[2020-11-30 18:57] VITALS: BP 131/96; PULSE 102; RESP 18; TEMP 36.5; O2SAT 98; BMI 39.4
--- NOTE | 2020-11-30 19:07 | CTR_ITS ---
PROCEDURE INFORMATION: Exam: CT Head Without Contrast Exam date and time: 11/30/2020 7:09 PM Age: 35 years old Clinical indication: Injury or trauma; Fall; Concussion/head injury; Without loss of consciousness TECHNIQUE: Imaging protocol: Computed tomography of the head without contrast. Radiation optimization: All CT scans at this facility use at least one of these dose optimization techniques: automated exposure control; mA and/or kV adjustment per patient size (includes targeted exams where dose is matched to clinical indication); or iterative reconstruction. COMPARISON: No relevant prior studies available. RADIATION DOSE METRICS: Total DLP (mGy-cm): 787.64 FINDINGS: Brain: There is no evidence of infarct, jung-white matter differentiation is preserved. There is no hemorrhage or extra-axial collection. There is no mass. Cerebral ventricles: There is no hydrocephalus. Bones/joints: Unremarkable. No acute fracture. Paranasal sinuses: Visualized sinuses are unremarkable. No fluid levels. Mastoid air cells: Visualized mastoid air cells are well aerated. Soft tissues: Unremarkable. CT/CT head wo con* [id number] IMPRESSION: No intracranial injury or lesion. Radiation Dose CTDIVOL = (mGy): DLP = 787.64 (mGy-cm)
--- NOTE | 2020-11-30 19:10 | W.ED.FALL ---
HPI - Fall General: Chief Complaint: Fall Stated Complaint: fell, hit head Time Seen by Provider: 11/30/20 19:05 Source: patient Mode of arrival: ambulatory Limitations: no limitations History of Present Illness: HPI Narrative: 35-year-old female who states she has a right foot drop and is caused her multiple falls over the past few months. She states that tonight she fell in her home and struck her head on her linoleum floor and had a loss of consciousness. States she has had a headache since the event to she is rated a 4 out of 10. She denies any vomiting. Denies any pain elsewhere. She states she is currently getting evaluated for MS but has not had a definitive diagnosis. Denies any worsening improving factors for her headache. MD complaint: fall Associated symptoms-after fall: Reports headache(s); Denies abdominal pain, chest pain or neck pain Review of Systems Const: Denies: fever(s), chills, body aches or change in appetite Eyes: Denies: blurry vision or eye discomfort ENMT: Denies: throat pain or dental pain Card: Denies: chest pain Resp: Denies: dyspnea GI: Denies: abdominal pain, nausea, vomiting or diarrhea : Denies: dysuria Musc: Denies: neck pain or back pain Skin/Breast: Denies: rash Neuro: Reports: headache(s) Psych: Denies: depression Hayes/Lymph: Denies: easy bruising All/Imm: Denies: urticaria PFS ED PFSH: Medical History (Updated 11/30/20 @ 19:53 by Ben Edward MD) Anxiety Asthma Atypical migraine H/O polymyalgia rheumatica Myelopathy Neuropathy Right hemiparesis Surgical History (System 11/22/20 @ 13:59 by Rebeca Greco) History of hysterectomy Family History Other Hypertension Social History (System 11/22/20 @ 13:59 by Rebeca Greco) Smoking and tobacco status: never smoked Alcohol intake: never History of recent travel: No Physical Exam Const: COMMON NORMALS: no acute distress, patient oriented x3 and healthy appearing HENMT: COMMON NORMALS: normocephalic HEAD & SCALP: normocephalic OTHER: slight contusion to forehead Eye: COMMON NORMALS: Equal, round and reactive pupils present and EOMs intact bilaterally PUPIL: Yes Equal, round and reactive pupils present Neck/C-Spine: COMMON NORMALS: full ROM and supple Chest: COMMONS NORMALS: normal inspection of the chest and normal palpation of entire chest wall Resp: COMMON NORMALS: normal respiratory effort, No retractions, No use of accessory muscles and clear to auscultation bilaterally AUSCULTATION: clear to auscultation bilaterally Cardio: COMMON NORMALS: regular rate, regular rhythm and No murmurs present (Cardio) RATE: regular rate RHYTHM: regular rhythm GI: COMMON NORMALS: Normal to inspection, nondistended, normoactive bowel sounds present, Soft to palpation, non-tender and no masses PALPATION: Yes Soft to palpation Extremity: COMMON NORMALS: normal to inspection and full ROM Neuro: COMMON NORMALS: patient oriented x3, moves all extremities and no focal motor deficits Psych: COMMON NORMALS: mental status grossly normal, Normal thought process present and cooperative THOUGHT PROCESS: Normal thought process present Skin: COMMON NORMALS: no rashes or lesions noted and no wounds GENERAL SKIN EXAM: no rashes or lesions noted Course Vital Signs: Vital signs: Vital Signs Temperature 97.7 F 11/30/20 18:57 Pulse Rate 87 11/30/20 19:28 Respiratory Rate 16 11/30/20 19:28 Blood Pressure 118/81 11/30/20 19:28 Pulse Oximetry 98 11/30/20 19:28 MDM - Fall MDM Narrative: Medical decision making narrative: He presents here with a closed head injury from a fall. Her head CT here is normal. She is well-appearing here and is stable for discharge. She is to follow-up with PCP in return if worsening. She understands agrees to plan. Imaging Data^: CT Head: Attestation: I personally reviewed and interpreted this imaging study as follows: Radiologist's impression: [address] [place] [address] CT Scan Report Signed Patient: Nhi Kirkpatrick Unit #: [id number] : 1985 Age/Sex: 35 / F ADM Date: 11/30/20 Loc: ER Room/Bed: Attending Dr: Ordering Provider/Ordering MD: Ben Edward MD Date of Service: 11/30/20 Procedure(s): CT head wo con* [id number] Accession Number(s): [id number] Report Number: [id number] PROCEDURE INFORMATION: Exam: CT Head Without Contrast Exam date and time: 11/30/2020 7:09 PM Age: 35 years old Clinical indication: Injury or trauma; Fall; Concussion/head injury; Without loss of consciousness TECHNIQUE: Imaging protocol: Computed tomography of the head without contrast. Radiation optimization: All CT scans at this facility use at least one of these dose optimization techniques: automated exposure control; mA and/or kV adjustment per patient size (includes targeted exams where dose is matched to clinical indication); or iterative reconstruction. COMPARISON: No relevant prior studies available. RADIATION DOSE METRICS: Total DLP (mGy-cm): 787.64 FINDINGS: Brain: There is no evidence of infarct, jung-white matter differentiation is preserved. There is no hemorrhage or extra-axial collection. There is no mass. Cerebral ventricles: There is no hydrocephalus. Bones/joints: Unremarkable. No acute fracture. Paranasal sinuses: Visualized sinuses are unremarkable. No fluid levels. Mastoid air cells: Visualized mastoid air cells are well aerated. Soft tissues: Unremarkable. CT/CT head wo con* [id number] IMPRESSION: No intracranial injury or lesion. Discharge Plan Discharge Patient Disposition: Home Clinical Impression: Closed head injury Qualifiers: Encounter type: initial encounter Qualified Code(s): S09.90XA - Unspecified injury of head, initial encounter Condition: Stable Prescriptions: No Action tramadol 50 mg tablet 50 mg PO TID PRNRF: 0 alprazolam [Xanax] 0.25 mg tablet 0.25 mg PO BID RF: 0 potassium gluconate 600 mg (99 mg) tablet 600 mg PO DAILY RF: 0 diltiazem HCl 240 mg capsule,ext.rel 24h degradable 240 mg PO DAILY RF: 0 lorazepam 2 mg tablet 2 mg PO DAILY PRNRF: 0 topiramate [Topamax] 100 mg tablet 100 mg PO DAILY RF: 0 hydrochlorothiazide 12.5 mg tablet 12.5 mg PO DAILY RF: 0 alprazolam [Xanax] 0.25 mg tablet 0.25 mg PO DAILY RF: 0 tramadol 50 mg tablet 50 mg PO DAILY RF: 0 cyclobenzaprine 5 mg tablet 5 mg PO TID PRNRF: 0 topiramate [Topamax] 100 mg tablet 100 mg PO DAILY RF: 0 diltiazem HCl 240 mg capsule,extended release 24hr 240 mg PO DAILY RF: 0 hydrochlorothiazide 12.5 mg tablet 12.5 mg PO DAILY RF: 0 escitalopram oxalate [Lexapro] 10 mg tablet 10 mg PO DAILY RF: 0 Rhofade 1 % cream 1 applic TOPICAL DAILY Qty: 30 RF: 3 prednisone 10 mg tablet 5 mg PO DAILY RF: 0 zolmitriptan [Zomig ZMT] 5 mg tablet,disintegrating 2.5 mg PO Q2H PRN (Reason: Migraine Headache) RF: 0 cyclobenzaprine 10 mg tablet 10 mg PO TID PRN (Reason: muscle spasm) Qty: 30 RF: 1 ondansetron HCl [Zofran] 8 mg tablet 8 mg PO Q8H PRN (Reason: nausea and vomiting) Qty: 30 RF: 1 ketorolac 10 mg tablet 10 mg PO Q6H PRN (Reason: pain) 5 Days Qty: 20 RF: 0 Vitamin D2 1,250 mcg (50,000 unit) Capsule 1,250 mcg PO Q7D RF: 0 Discharge Orders: Discharge ED (Routine); Ordered 11/30/20 Ordered By: Ben Edward Referrals: Preston Dyer DO [Primary Care Provider] - 1-3 days Discharge Diet: Advance as tolerated Discharge Activity: Resume usual activity Patient Instructions: Minor Head Injury (ED) Coding Level of Care Code 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
[2020-11-30] MEDS: HYDROcodone-acetaminophen 5-325 mg Tablet 1 TAB PO (19:25)
[2020-11-30 19:28] VITALS: BP 118/81; PULSE 87; RESP 16; O2SAT 98
[2020-11-30 20:24] VITALS: BP 118/81; PULSE 81; RESP 16; O2SAT 95
== END 2020-11-30 20:25 | disposition home or self-care (01) ==
PROVIDERS: Emergency Provider Emergency Medicine; PCP Electrodiagnostic Medicine
DX: S09.8XXA Other specified injuries of head, initial encounter (principal); W19.XXXA Unspecified fall, initial encounter
CPT/HCPCS: 70450; 99283

== ENCOUNTER 2020-12-07 14:05 | Outpatient (CLI) | payer OTHER, SELFPAY ==
--- NOTE | 2020-12-07 14:09 | MR_ITS ---
WS: [id number] MRI CERVICAL SPINE with and without contrast. HISTORY: G81.91 - Hemiplegia, unspecified affecting right dominant side COMPARISON: None available. Technique: Multiplanar, multisequence noncontrast imaging of the cervical spine with and without cont rast. Normal cervical alignment with no compression fracture or significant disc space narrowing. Signal within the cervical cord is normal. Visualized posterior fossa is unremarkable. Craniocervical junction, C1 and C2 relationship, odontoid process and soft tissues are normal. C2-C3: Normal. C3-C4: Normal. C4-C5: Normal. C5-C6: Very minimal osteophytic ridging. No stenosis. C6-C7: Minimal osteophytic ridging with no stenosis. C7-T1: Normal. No enhancing lesions throughout the cervical cord. There is no atrophy or enlargement. Paravertebral soft tissues are normal. MR/MR cervical spine wo/w [id number] IMPRESSION: 1. Negative MRI cervical spine. No stenosis. 2. No enhancing lesions or evidence for demyelination.
--- NOTE | 2020-12-07 14:09 | MR_ITS ---
WS: [id number] MRI THORACIC SPINE with and without contrast HISTORY: G81.91 - Hemiplegia, unspecified affecting right dominant side COMPARISON: None available. TECHNIQUE: Multiplanar sequences are performed in sagittal and axial planes. Study performed with and without contrast. Normal posterior thoracic alignment. No fractures or marrow edema. T11 and T12 benign hemangiomas. Si gnal within the cord is normal. T1-2: Normal. T2-3: Normal. T3-4: Normal. T4-5: Normal. T5-6: Normal. T6-7: Normal. T7-8: Normal. T8-9: Normal. T9-10: Normal. T10-11: Bilateral facet joint arthritis with mild encroachment into the thecal sac. Mild bilateral f oraminal stenosis. T11-12: Normal. No enhancing lesions are noted within the thoracic cord. There is no atrophy or enlargement. Conus ta pers normally at L1. MR/MR thoracic spine wo/w [id number] IMPRESSION: 1. No demyelinating lesions within the thoracic cord. No cord atrophy or enlar gement. 2. Mild central and bilateral foraminal stenosis at T10-11 due to facet joint arthritis. Slightly greater foraminal narrowing on the RIGHT.
[2020-12-07] MEDS: gadobenate dimeglumine 20 mL vial IV (15:39)
== END 2020-12-07 14:06 | disposition home or self-care (01) ==
LOC: RADSHAW 14:06
PROVIDERS: PCP Electrodiagnostic Medicine; Visit Provider Nurse Practitioner
DX: G81.91 Hemiplegia, unspecified affecting right dominant side (principal); M48.04 Spinal stenosis, thoracic region; M47.814 Spondylosis without myelopathy or radiculopathy, thoracic region
CPT/HCPCS: 72156; 72157; A9577

== ENCOUNTER 2020-12-08 07:51 | Outpatient (CLI) | payer OTHER, SELFPAY ==
--- NOTE | 2020-12-08 07:55 | MR_ITS ---
WS: [id number] MRI LUMBAR SPINE WITH AND WITHOUT HISTORY: G81.91 - Hemiplegia, unspecified affecting right dominant side COMPARISON: None available. TECHNIQUE: Sagittal and axial multisequence imaging is submitted. Mild straightening of the normal lumbar lordosis. Mild disc space narrowing at L4-5 and desiccation. Benign hemangiomas at T11 and T12. No marrow edema or fracture. Conus terminates normally at L1-2 disc level. L1-L2: Normal. L2-L3: Normal. L3-L4: Mild annular disc bulging with ligamentum flavum disease and facet arthritis. No disc protrusi ons. Very mild narrowing of the foramen. L4-L5: Mild annular disc bulging with a central disc protrusion. Moderate ligamentum flavum disease a nd facet arthritis. There is very slight encroachment upon the nerve roots in the lateral recesses. M ild foraminal narrowing. L5-S1: Mild annular disc bulging. Shallow central disc protrusion with mild facet arthritis. There is very slight contact on the RIGHT L5 nerve root in the foramen but no displacement or deformity. Mild bilateral foraminal stenosis. No discitis or osteomyelitis. MR/MR lumbar spine wo/w con [id number] IMPRESSION: 1. No high-grade central or foraminal stenosis. 2. Central disc protrusion at L4-5 with very mild encroachment upon the nerve roots in the lateral recesses. 3. Shallow central disc protrusion at L5-S1. 4. Disc bulging at L5-S1 is causing very slight contact on the RIGHT L5 nerve root in the foramen but no displacement.
== END 2020-12-08 07:52 | disposition home or self-care (01) ==
LOC: RADSHAW 07:53
PROVIDERS: PCP Electrodiagnostic Medicine; Visit Provider Nurse Practitioner
DX: G81.91 Hemiplegia, unspecified affecting right dominant side (principal); M51.26 Other intervertebral disc displacement, lumbar region; M51.27 Other intervertebral disc displacement, lumbosacral region
CPT/HCPCS: 72158; A9577

== ENCOUNTER → 2020-12-13 12:34 | Outpatient (BNVA) | payer OTHER, SELFPAY | PROVIDERS: PCP Electrodiagnostic Medicine; Visit Provider Specialist | DX: G81.91 Hemiplegia, unspecified affecting right dominant side (principal); G43.709 Chronic migraine without aura, not intractable, without status migrainosus; F41.9 Anxiety disorder, unspecified; F32.9 Major depressive disorder, single episode, unspecified; Z86.16 Personal history of COVID-19 | CPT/HCPCS: 99215 ==

== ENCOUNTER 2020-12-20 13:02 | Outpatient (RCR) | payer OTHER, SELFPAY | END 2021-01-12 23:59 | disposition home or self-care (01) | LOC: SPT 13:02 | PROVIDERS: PCP Electrodiagnostic Medicine; Referring Provider Specialist; Visit Provider Specialist | DX: M21.371 Foot drop, right foot (principal); G81.91 Hemiplegia, unspecified affecting right dominant side | CPT/HCPCS: 97110; 97112; 97162 ==

== ENCOUNTER → 2021-01-03 09:28 | Outpatient (BNVA) | payer OTHER, SELFPAY | PROVIDERS: PCP Electrodiagnostic Medicine; Visit Provider Internal Medicine | DX: G62.9 Polyneuropathy, unspecified (principal); R76.8 Other specified abnormal immunological findings in serum; R79.82 Elevated C-reactive protein (CRP); D75.1 Secondary polycythemia; R82.90 Unspecified abnormal findings in urine; E87.6 Hypokalemia; F32.9 Major depressive disorder, single episode, unspecified | CPT/HCPCS: 36415; 80053; 81003; 85025; 90791; 99214 ==

== ENCOUNTER 2021-01-11 06:00 | Outpatient (RCR) | payer OTHER, SELFPAY | END 2021-01-12 23:59 | disposition home or self-care (01) | LOC: SOT 06:00 | PROVIDERS: PCP Electrodiagnostic Medicine; Referring Provider Electrodiagnostic Medicine; Visit Provider Electrodiagnostic Medicine | DX: F44.7 Conversion disorder with mixed symptom presentation (principal); G43.909 Migraine, unspecified, not intractable, without status migrainosus; F32.9 Major depressive disorder, single episode, unspecified; F41.9 Anxiety disorder, unspecified; R29.898 Other symptoms and signs involving the musculoskeletal system; M21.371 Foot drop, right foot | CPT/HCPCS: 97166 ==

== ENCOUNTER 2021-01-13 06:00 | Outpatient (RCR) | payer OTHER, SELFPAY | END 2021-02-12 23:59 | disposition home or self-care (01) | LOC: SPT 06:00 | PROVIDERS: PCP Electrodiagnostic Medicine; Referring Provider Specialist; Visit Provider Specialist | DX: F44.7 Conversion disorder with mixed symptom presentation (principal); G43.909 Migraine, unspecified, not intractable, without status migrainosus; R29.898 Other symptoms and signs involving the musculoskeletal system; M21.371 Foot drop, right foot | CPT/HCPCS: 97110; 97112 ==

== ENCOUNTER 2021-01-13 06:00 | Outpatient (RCR) | payer OTHER, SELFPAY | END 2021-02-12 23:59 | disposition home or self-care (01) | LOC: SOT 06:00 | PROVIDERS: PCP Electrodiagnostic Medicine; Referring Provider Electrodiagnostic Medicine; Visit Provider Electrodiagnostic Medicine | DX: F44.7 Conversion disorder with mixed symptom presentation (principal); G43.909 Migraine, unspecified, not intractable, without status migrainosus; F32.9 Major depressive disorder, single episode, unspecified; F41.9 Anxiety disorder, unspecified; R29.898 Other symptoms and signs involving the musculoskeletal system; M21.371 Foot drop, right foot | CPT/HCPCS: 97110; 97112; L3923 ==

== ENCOUNTER → 2021-01-18 10:11 | Outpatient (BNVA) | payer OTHER, SELFPAY | PROVIDERS: PCP Electrodiagnostic Medicine; Visit Provider Specialist | DX: G81.90 Hemiplegia, unspecified affecting unspecified side (principal); G43.711 Chronic migraine without aura, intractable, with status migrainosus; F32.9 Major depressive disorder, single episode, unspecified | CPT/HCPCS: 99214 ==

== ENCOUNTER 2021-01-24 10:15 | Outpatient (CLI) | payer OTHER, SELFPAY ==
--- NOTE | 2021-01-24 12:09 | ONC CON_ITS ---
Dr. Bella New Patient Note Patient: Nhi Kirkpatrick Unit #: [id number]: 1985 Dicatated By: Alexsander Bella M.D.Date of Visit: January 24, 2021 Onc MED New Patient/Consult Referring Physician: Dr. Patel Cochran M.D. Chief Complaint: Elevated hemoglobin/hematocrit. History of Present Illness: This is a 35-year-old woman who is seen in regard to mildly elevated hemoglobin/hematocrit levels. This patient has hypertension, chronic migraine, and mild asthma, and she has a history of nephrolithiasis. Last summer she was diagnosed with polymyalgia rheumatica. She has been on low-dose prednisone at 5 mg daily, and she recently started treatment with hydroxychloroquine. In July 2020 she was diagnosed with COVID-19 virus infection. In September 2020 she developed neurologic symptoms including right foot drop and some weakness in the right arm and hand. She was diagnosed with functional neurologic disorder. During her recent follow-up with rheumatology she has been noted to have elevated hemoglobin/hematocrit levels. The highest levels were noted in July 2020 with her hemoglobin at 18.0 g and hematocrit 50.4%, though at the time she was acutely ill. Her repeat CBC on 11/15/2000 showed hemoglobin 16.1 g with hematocrit 45.8%, white blood cell count 7600, and platelet count 371,000. The most recent study, from 01/03/2021, showed hemoglobin at 15.4 g and hematocrit 46.5%, white blood cell count 5700, and platelet count 323,000. She has had very low energy since the COVID-19 virus infection in July, she actually had been showing decline in her energy since the spring of last year. She has been unable to work since October, but she does light work at home. ECOG score is 1. Her appetite has not been good. She has had a 30 pound weight loss since September. She does not have fever, night sweats, or hot flashes. She has had occasional mouth sores. She sometimes has cough and she does tend to get out of breath with activity. She has had occasional episodes of dull pain or tightness in her chest, typically after activity. She is also had brief episodes of palpitation. She has had some nausea and recently she has been having heartburn. Her bowels have tended to fluctuate between constipation and diarrhea, but that is chronic. She has not been aware of any blood in the stool. Bladder function has been okay other than she does tend to have nocturia. She has pain in her hips, knees, and back associated with the polymyalgia. That tends to be worse after activity. The pain and the weakness in her right arm/hand and right leg have been gradually improving. She sees Dr. Urena for management of her chronic migraine. She recently started treatment with venlafaxine for anxiety/depression. She also reports having difficulty with memory and with concentration, and she does not sleep well at night. Past Medical History: Her medical history includes anxiety and depression, asthma, chronic migraine, hypertension, nephrolithiasis, polymyalgia rheumatica, rosacea, vitamin D deficiency, and COVID-19 virus infection in 2019. Past Surgical History: Her surgical/procedural history includes arthroscopic left knee surgery in 2017, evacuation of hematoma in 2017, hysterectomy without oophorectomy in 2016, tubal ligation in 2014, and cholecystectomy in 2011. Medications: ALPRAZolam 1 Tablet (of 0.25 mg) Oral PRN, Cardizem CD 1 Capsule (of 240 mg) Capsule SR 24 HR Oral daily, Cyclobenzaprine HCl 1 Tablet (of 10 mg) Oral t.i.d. PRN, Effexor XR 1 Capsule (of 150 mg) Capsule SR 24 HR Oral daily, hydroCHLOROthiazide 1 Tablet (of 12.5 mg) Oral daily, Hydroxychloroquine Sulfate 1 Tablet (of 200 mg) Oral b.i.d., Ondansetron HCl 1 Tablet (of 8 mg) Oral PRN, Potassium Gluconate 1 Tablet (of 595 (99 k) mg) Oral daily, predniSONE 1 Tablet (of 5 mg) Oral daily, Rhofade Cream Topical PRN, Topamax 1 Tablet (of 100 mg) Oral daily, traMADol HCl 1 Tablet (of 50 mg) Oral PRN, Zomig ZMT 1 Tablet (of 5 mg) Tablet Dispersable Oral PRN Allergies: Doxycycline Hyclate, Penicillins, and Vancomycin HCl. Social History: Ms. Kirkpatrick is . She is employed as an [employer]. She is a non-smoker. She does not drink alcohol. Family History: Mother and father are still living, both at age 60. He has hypertension and bipolar disorder. She has anxiety. A 31-year-old sister has been treated for cervical cancer. Review Of Symptoms: Constitutional - She has had decrease in energy over the past year or so. She has been unable to work since October. Appetite has not been good. Her weight is down 30 lbs. since September. No fever, night sweats, or hot flashes. ECOG score is 1, Eyes - No change in vision, ENMT - No hearing loss or tinnitus. She has some sinus drainage. She occasionally has sores in her mouth. No sore throat or difficulty swallowing, Hematologic/Lymphatic - She has easy bruising she has some sinus drainage. She occasionally has sores in her mouth., Respiratory - She gets short of breath with activity. She occasionally has cough. No pleuritic pain or hemoptysis, Cardiovascular - She sometimes has a dull pain or tightness in her chest, typically occurring after activity. She has occasional palpitations, Gastrointestinal - She has some nausea and recently she has been having heartburn. Her bowels tend to alternate between diarrhea and constipation. No blood in the stool or black stools, Genitourinary (F) - No dysuria or hematuria. No urinary frequency, but she does have nocturia. No urgency or incontinence, Musculoskeletal - She tends to have pain in her hips, knees, and back associated with the polymyalgia, and that does tend to be worse when she has been more active. She has had pain in her right leg and in her right arm and hand since the Covid infection. It has been getting better gradually, Integumentary - She has history of rosacea. She has no other skin changes, Neurologic - She has migraine headaches. She sometimes has dizziness. She developed foot drop in September and she also has had some weakness and numbness in her right arm and right leg. She was diagnosed with functional neurologic disorder, Psychiatric - She has anxiety and depression. She recently started treatment with venlafaxine. She has difficulty with concentration and memory, and she does not sleep well. Vital Signs: Performed on January 24, 2021 10:52: 5, 0, 41.48 (HIGH), 1.91 sq.m, 60 in, 96 %, 81 /min, 18 /min, 130/84 mm(hg), 96.9 F (LOW), and 212.4 lbs (HIGH). Physical Examination: Constitutional - She appears to be in good general health, Eyes - Sclerae nonicteric. Conjunctivae clear, ENMT - No lesions noted in the oral cavity, Neck - No mass or thyromegaly, Hematologic/Lymphatic - No cervical, clavicular, or axillary adenopathy, Respiratory - Lungs are clear with good air movement bilaterally, Cardiovascular - Heart rhythm is regular. There is no murmur, gallop, or rub noted, Abdomen - Soft and non-tender. Liver and spleen are not enlarged. There is no abdominal mass or ascites noted and there is no inguinal adenopathy, Back/Spine - No spine or CVA tenderness noted, Extremities - No edema. Pedal pulses are palpable bilaterally, Integumentary - No rashes. No suspicious skin lesions noted, Neurologic - There is mild foot drop on the right and there is some slight weakness in the right hand. Problem List: 1. Elevated hemoglobin/hematocrit levels. 2. Polymyalgia rheumatica. 3. Hypertension. 4. Mild asthma. 5. Chronic migraine. 6. History of nephrolithiasis. 7. Rosacea. 8. Vitamin D deficiency. 9. Functional neurologic disorder. 10. Anxiety/depression. Problems Addressed with this Encounter and Plan: Patient with elevated hemoglobin/hematocrit levels. The cause is uncertain. However, it is most likely due to decreased plasma volume, as there is no clinical evidence for underlying hypoxia and there are no other associated findings to suggest polycythemia rubra vera. The laboratory findings were reviewed with the patient and we discussed the clinical implications. I will request additional laboratory studies today to include CBC, comprehensive metabolic profile, LDH level, and erythropoietin level, and a JAK2 gene mutation study. In the absence of any evidence of a clonal disorder and with just mildly elevated hemoglobin/hematocrit levels, she can be managed expectantly. Signed By: Alexsander Bella M.D. <<Signature on File>>
[2021-01-24 12:31] LABS: Basophils % 0.8 %; Eosinophils # 0.2 10^3/uL (0.0-0.8); Eosinophils % 3.8 %; Hematocrit 44.8 % (37.0-47.0); Hemoglobin 15.2 g/dL (11.5-15.3); Lymphocytes # 2.3 10^3/uL (0.8-4.8); Lymphocytes % 46.3 %; Mean Corpuscular HGB Conc 33.9 g/dL (30.0-36.0); Mean Corpuscular Hemoglobin 30.3 pg (28.0-34.0); Mean Corpuscular Volume 89.4 fL (81-99); Mean Platelet Volume 9.8 fL (7.4-10.4); Monocytes # 0.3 10^3/uL (0.2-0.9); Monocytes % 5.6 %; Neutrophils # 2.14 10^3/uL (1.8-7.7); Neutrophils % 43.1 %; Nucleated Red Blood Cells % 0 %; Platelet Count 351 10^3/cmm (130-400); Red Blood Count 5.01 10^6/uL (4.1-5.3); Red Cell Distribution Width 11.6 % (12.1-15.1)
[2021-01-24 12:35] LABS: LAB Peripheral Smear Sent for Review
[2021-01-24 15:38] LABS: Alanine Aminotransferase 22 U/L (0-33); Albumin Level 4.1 g/dL (3.5-5.2); Alkaline Phosphatase 58 IU/L (35-105); Aspartate Amino Transferase 23 U/L (0-32); Blood Urea Nitrogen 7 mg/dL (6-20); Calcium 9.1 mg/dL (8.5-10.5); Carbon Dioxide 23 mmol/L (22-29); Chloride 102 mmol/L (98-107); Globulin 2.6 g/dL (1.3-4.6); Glomerular Filtration Rate 113.1 mL/min (90-130); Glucose 99 mg/dL (65-115); Osmolality Calculated 284 mOsm/kg (285-295); Sodium 138 mmol/L (136-145); Total Bilirubin 0.3 mg/dL (0.15-1.2); Total Protein 6.7 g/dL (6.6-8.7)
[2021-01-24 15:41] LABS: Lactate Dehydrogenase 253 U/L (135-214)
[2021-01-25 14:52] LABS: Erythropoietin 10.3 mIU/mL (2.6-18.5)
== END 2021-01-24 10:16 | disposition home or self-care (01) ==
PROVIDERS: PCP Electrodiagnostic Medicine; Visit Provider Internal Medicine Medical Oncology
DX: R79.89 Other specified abnormal findings of blood chemistry (principal); M35.3 Polymyalgia rheumatica; I10 Essential (primary) hypertension; J45.20 Mild intermittent asthma, uncomplicated; G43.919 Migraine, unspecified, intractable, without status migrainosus; N20.0 Calculus of kidney; L71.9 Rosacea, unspecified; E55.9 Vitamin D deficiency, unspecified; R29.90 Unspecified symptoms and signs involving the nervous system; F41.9 Anxiety disorder, unspecified; F32.9 Major depressive disorder, single episode, unspecified; Z79.899 Other long term (current) drug therapy
CPT/HCPCS: 80053; 81270; 82668; 83615; 85025; 99203

== ENCOUNTER 2021-02-13 06:00 | Outpatient (RCR) | payer OTHER, SELFPAY | END 2021-02-13 23:00 | disposition home or self-care (01) | LOC: SOT 06:00 | PROVIDERS: PCP Electrodiagnostic Medicine; Referring Provider Electrodiagnostic Medicine; Visit Provider Electrodiagnostic Medicine | DX: M21.371 Foot drop, right foot (principal); G81.91 Hemiplegia, unspecified affecting right dominant side | CPT/HCPCS: 97110 ==

== ENCOUNTER → 2021-03-03 14:34 | Outpatient (BNVA) | payer OTHER, SELFPAY | PROVIDERS: PCP Electrodiagnostic Medicine; Visit Provider Nurse Practitioner | DX: S99.921A Unspecified injury of right foot, initial encounter (principal); W17.89XA Other fall from one level to another, initial encounter; M25.474 Effusion, right foot | CPT/HCPCS: 73630 ==

== ENCOUNTER → 2021-03-12 09:56 | Outpatient (BNVA) | payer OTHER, SELFPAY | PROVIDERS: PCP Electrodiagnostic Medicine; Visit Provider Specialist | DX: G81.90 Hemiplegia, unspecified affecting unspecified side (principal); G43.711 Chronic migraine without aura, intractable, with status migrainosus; F32.9 Major depressive disorder, single episode, unspecified | CPT/HCPCS: 99214 ==

== ENCOUNTER → 2021-05-09 12:18 | Outpatient (BNVA) | payer OTHER, SELFPAY | PROVIDERS: PCP Electrodiagnostic Medicine; Visit Provider Registered Nurse Neonatal Intensive Care | DX: Z20.822 Contact with and (suspected) exposure to COVID-19 (principal) | CPT/HCPCS: 87635 ==

== ENCOUNTER → 2021-07-19 15:31 | Outpatient (BNVA) | payer OTHER, SELFPAY | PROVIDERS: PCP Electrodiagnostic Medicine; Visit Provider Internal Medicine | DX: R76.8 Other specified abnormal immunological findings in serum (principal); R79.82 Elevated C-reactive protein (CRP); M48.00 Spinal stenosis, site unspecified; G62.9 Polyneuropathy, unspecified; Z87.891 Personal history of nicotine dependence | CPT/HCPCS: 99214 ==

== ENCOUNTER → 2021-07-20 08:21 | Outpatient (BNVA) | payer OTHER, SELFPAY | PROVIDERS: PCP Electrodiagnostic Medicine; Visit Provider Internal Medicine | DX: R76.8 Other specified abnormal immunological findings in serum (principal) | CPT/HCPCS: 80053; 82533; 83735; 84100; 84443; 85025; 85651; 86140 ==

== ENCOUNTER → 2021-07-30 15:50 | Outpatient (BNVA) | payer OTHER, SELFPAY | PROVIDERS: PCP Electrodiagnostic Medicine; Visit Provider Specialist | DX: Z01.818 Encounter for other preprocedural examination (principal); M25.562 Pain in left knee; Z20.822 Contact with and (suspected) exposure to COVID-19 | CPT/HCPCS: 73560; 73565; 87635 ==

== ENCOUNTER → 2021-07-31 08:19 | Outpatient (BNVA) | payer OTHER, SELFPAY | PROVIDERS: PCP Electrodiagnostic Medicine; Referring Provider Internal Medicine; Visit Provider Anesthesiology Pain Medicine | DX: G89.29 Other chronic pain (principal); M54.12 Radiculopathy, cervical region; M54.16 Radiculopathy, lumbar region; M79.604 Pain in right leg | CPT/HCPCS: 99205 ==

== ENCOUNTER 2021-08-02 11:21 | Day surgery (SDC) | payer OTHER, SELFPAY ==
[2021-08-01 16:22] VITALS: BMI 40.4
[2021-08-02] VITALS (14 sets, daily range): BP systolic 103–139; BP diastolic 40–97; PULSE 71–105; RESP 12–22; TEMP 36.2–36.4; O2SAT 92–100
--- NOTE | 2021-08-02 12:02 | W.PM.OPSUD ---
Surgery/Procedure H&P Update DATE OF PROCEDURE: August 02, 2021 DATE H&P PERFORMED: 07/31/21 H&P UPDATE INFORMATION: I have reviewed H&P completed within last 30 days, No changes to prior documentation and H&P is in [facility] on date indicated PREOP DIAGNOSIS: Left knee medial meniscal tear PLANNED PROCEDURE: Operation Date: 08/02/21 13:00 Proposed Procedures p Knee Arthroscopy 36421 S83.249A(Left) - Anna Marie Crocker MD Related Problem List Diagnoses (1) Acute medial meniscus tear of left knee: Qualifiers: Encounter type: initial encounter Qualified Code(s): S83.242A - Other tear of medial meniscus, current injury, left knee, initial encounter
[2021-08-02] MEDS: CELEcoxib 200 mg Capsule 400 MG PO (12:16)
[2021-08-02] MEDS: sodium chloride 0.9% 1,000 ML 30 ML IV (12:23)
[2021-08-02] MEDS: acetaminophen 1,000 MG/100 ML PIGGYBACK 400 MG IV (12:23)
[2021-08-02] MEDS: clindamycin 600 MG/50 ML PREMIX 100 MG IV (13:24)
--- NOTE | 2021-08-02 13:33 | ANES.PREANE2 ---
Pre-Anesthetic Assessment Pre-Anesthetic Assessment: Height/Weight: Height 1.5 m Weight 90.718 kg Temp Pulse Resp BP Pulse Ox 97.6 F 71 16 139/92 99 08/02/21 11:39 08/02/21 11:39 08/02/21 11:39 08/02/21 11:39 08/02/21 11:39 Preop Diagnosis: Left knee medial meniscal tear Proposed Procedure: Operation Date: 08/02/21 13:00 Proposed Procedures p Knee Arthroscopy 43233 S83.249A(Left) - Anna Marie Crocker MD Was Beta Nancy taken within 24 hours: N/A Was Clonidine taken within 24 hours: N/A Last intake: Intake Last Liquid Date 08/01/21 Last Liquid Time 21:30 Last Solid Date 08/01/21 Last Solid Time 21:30 Social: Social History: No alcohol and No tobacco Exam: Pre-Anes Outpt Exam: alert, oriented x 3, clear to auscultation bilaterally and regular rate & rhythm Airway: Submandibular: WNL Cervical ROM: WNL MP: 2 Dentition: Full CV/HEM: CV/HEM: HTN GI: GI: GERD Metabolic: Metabolic: Morbid obesity Musc/skel: Musc/skel: OA/DJD Neuropsych: Neuropsych: Anxiety, Depression, BRANDT and Neuropathy Anesthetic Plan: ASA status: 3 Anesthesia: General Risk of > 500 ml blood loss (7ml/kg in children): No Meds/Allergies Current Medications: Current Medications Generic Name Dose Route Start Last Admin Trade Name Freq PRN Reason Stop Dose Admin Sodium Chloride 1,000 mls @ 30 ml s/hr 08/02/21 11:45 08/02/21 12:23 Sodium Chloride 0.9% IV 08/03/21 11:44 30 mls/hr .Q24H FAMILIA Administration PFSH Anesthesia PFSH: Medical History Anxiety Asthma Atypical migraine H/O polymyalgia rheumatica Myelopathy Neuropathy Right hemiparesis Spinal stenosis Surgical History History of hysterectomy Family History Other Hypertension Social History Alcohol intake: never History of recent travel: No Data Anesthesia Cardiac Studies: No Data to Display
[2021-08-02] MEDS: morphine 4 mg/mL SDV 1 mL 8 MG XX (14:16)
[2021-08-02] MEDS: HYDROmorphone 1 mg/mL INJ 1 mL 0.5 MG IVP ×2 (14:57→15:09)
--- NOTE | 2021-08-02 15:04 | P.OP_ITS ---
Operative Report Date of procedure: August 02, 2021 Pre-op Diagnosis: Left knee medial meniscal tear Post-op diagnosis: other Post-op Diagnosis: Left knee medial lateral meniscal tears with degenerative osteoarthritic changes Post-op Findings: As above Procedure Done: Left arthroscopic knee surgery with partial medial and lateral meniscectomies and chondroplasties medial femoral condyle, lateral femoral condyle, tibial plateau Specimens removed/disposition: None Pathology: none sent Surgeon: Anna Marie Crocker Examination Grader: None Anesthesia: General (LMA, ASA 2) Estimated blood loss (mL): 1 Tourniquet time (min): 35 Tourniquet time: At 300 mmHg IV fluids (mL): 900 Urine output (mL): 0 Urine output: No [facility] Complications: None Findings: Medial and lateral meniscal tears with significant chondromalacia medial and lateral femoral condyles and lateral tibial plateau Condition: stable Disposition: PACU (Then discharge to same-day surgery and home with family) Brief History: This 36-year-old woman presented with complaints of left knee pain. She had previously had 2 arthroscopic procedures, but has recurrence of her pain. She wished to be evaluated for the possibility of arthroscopic intervention. After evaluation and physical examination, we elected to proceed with arthroscopic intervention. Risks and complications were discussed with the patient and she understood. She wished to proceed. Questions were answered and consents were signed. Procedure: Patient was brought to the operating theater and after undergoing adequate general anesthesia per LMA, ASA 2,, the patient's left lower extremity was prepped and draped in usual fashion utilizing DuraPrep. A tourniquet was placed high on the leg prior to prepping and draping. The tourniquet was elevated prior to commencement of the surgical procedure to 300 mmHg. Total tourniquet time was 35 minutes. Elevation followed prepping and exsanguination. Prior to commencement of the surgical procedure, a surgical pause was performed. At the time of the surgical pause, we identified the site and side of surgery. We also confirm the patient's identity and appropriate and timely administration of preoperative antibiotics, clindamycin 600 mg. Preoperative surgical markings were also visualized at this time. Standard arthroscopic portals were utilized including superolateral, inferomedial, and inferolateral portals. The examination commenced in the suprapatellar pouch area where the patient was noted to have minimal chondromalacia to the undersurface of the patella or the trochlear groove, but there was significant medial osteophyte formation along the medial border of the femur. The arthroscope was then passed in the medial compartment where there was noted to be no significant chondromalacia of the patella or trochlear groove, but there was evidence of osteophytes along the medial rim of the medial femoral condyle. There was no loose body noted within the medial gutter. The weightbearing portion of the medial femoral condyle demonstrated significant chondromalacia and there was irregularity of the anterior half of the medial meniscus. The posterior medial meniscus was noted to be intact and was not displaceable into the joint. The arthroscope was then passed across the notch area where anterior cruciate ligament was visualized and found to be intact. There was noted to be synovitis in this area, and this was debrided with the intra-articular shaver and heat wand. The scope was passed into the lateral compartment with the knee in a [id number] position. Lateral meniscus was noted to have significant inner rim tearing involving the entire lateral meniscus. It was especially prominent anteriorly. This was debrided with the intra-articular shaver as well as the heat wand. Chondroplasty was also performed of the lateral femoral condyle and lateral tibial plateau. Once lateral meniscus had been thus prepared it was palpated and found to be intact and not displaceable into the knee joint. Scope was then returned to the medial compartment where chondroplasty was performed, and the meniscus was debrided. The meniscus was palpated and found to be not displaceable into the knee joint. The arthroscope was then returned to the patellofemoral joint a slight synovectomy was performed. Once the patellofemoral compartment had been addressed, the scope was passed back through the knee compartments to evaluate for other abnormalities. Finding none, attention was directed to closure. The knee was copiously irrigated and suctioned dry. Following this, each portal was closed with a simple suture followed by Dermabond, Steri-Strips, and and OpSite. Additionally, the knee was injected with 20 mL of half percent r opivacaine and 8 mg of morphine. Additional 10 mL of ropivacaine was placed about the portals. Sterile dressing was placed consisting of the Tegaderm followed by the Jerrell wrap. Patient was returned to Recovery Room in satisfactory condition where she will be discharged home to follow-up with me in the office as scheduled. There were no complications and no specimens. Associated Problem List Diagnoses (1) Acute medial meniscus tear of left knee: Qualifiers: Encounter type: initial encounter Qualified Code(s): S83.242A - Other tear of medial meniscus, current injury, left knee, initial encounter (2) Acute lateral meniscal tear: Qualifiers: Encounter type: initial encounter Laterality: left Qualified Code(s): S83.282A - Other tear of lateral meniscus, current injury, left knee, initial encounter (3) Primary localized osteoarthritis of left knee:
--- NOTE | 2021-08-02 15:22 | ANE.PACU2 ---
Inpatient post-anesthesia follow up: Airway intact: Yes Vital signs: Temperature 97.2 F Pulse Rate 77 Respiratory Rate 18 Blood Pressure 123/86 Pulse Oximetry 98 Oxygen Delivery Me thod Room Air Oxygen Flow Rate Fraction of Inspir ed Oxygen Hydration adequate: Yes Nausea and vomiting: No Pain level: 2 Mental status: Baseline
[2021-08-02] MEDS: oxyCODONE 5 mg IR Tab/Cap PO (16:00)
== END 2021-08-02 16:18 | disposition home or self-care (01) ==
PROVIDERS: PCP Electrodiagnostic Medicine; Visit Provider Specialist
PROC: (CPT 29870; principal; 2021-08-02 12:50)
DX: S83.242A Other tear of medial meniscus, current injury, left knee, initial encounter (principal); M17.12 Unilateral primary osteoarthritis, left knee; M94.262 Chondromalacia, left knee; Z88.1 Allergy status to other antibiotic agents; Z88.0 Allergy status to penicillin; X58.XXXA Exposure to other specified factors, initial encounter
CPT/HCPCS: 29880; 96365; J1100; J1170; J1885; J2270; J2405; J2704; J2795; J3010; J3490; J7030

== ENCOUNTER → 2021-08-13 14:24 | Outpatient (BNVA) | payer OTHER, SELFPAY | PROVIDERS: PCP Electrodiagnostic Medicine; Visit Provider Anesthesiology Pain Medicine | DX: G89.29 Other chronic pain (principal); M54.16 Radiculopathy, lumbar region; Z79.891 Long term (current) use of opiate analgesic | CPT/HCPCS: 64483; J1100; J3490 ==

== ENCOUNTER → 2021-08-14 08:07 | Outpatient (BNVA) | payer OTHER, SELFPAY | PROVIDERS: PCP Electrodiagnostic Medicine; Visit Provider Specialist | DX: G43.711 Chronic migraine without aura, intractable, with status migrainosus (principal) | CPT/HCPCS: 99213; 99214 ==

== ENCOUNTER → 2021-09-20 08:22 | Outpatient (BNVA) | payer OTHER, SELFPAY | PROVIDERS: PCP Electrodiagnostic Medicine; Visit Provider Family Medicine | DX: Z20.822 Contact with and (suspected) exposure to COVID-19 (principal) | CPT/HCPCS: 87635; 87801 ==

== ENCOUNTER → 2021-10-04 09:36 | Outpatient (BNVA) | payer OTHER, SELFPAY | PROVIDERS: PCP Electrodiagnostic Medicine; Visit Provider Nurse Practitioner Family | DX: Z20.822 Contact with and (suspected) exposure to COVID-19 (principal) | CPT/HCPCS: 87635 ==

== ENCOUNTER → 2021-10-10 11:37 | Outpatient (BNVA) | payer OTHER, SELFPAY | PROVIDERS: PCP Electrodiagnostic Medicine; Visit Provider Registered Nurse Neonatal Intensive Care | DX: Z20.822 Contact with and (suspected) exposure to COVID-19 (principal) | CPT/HCPCS: 87635 ==

== ENCOUNTER → 2021-10-30 08:19 | Outpatient (BNVA) | payer OTHER, SELFPAY | PROVIDERS: PCP Electrodiagnostic Medicine; Visit Provider Family Medicine | DX: M54.9 Dorsalgia, unspecified (principal); M54.16 Radiculopathy, lumbar region; R76.8 Other specified abnormal immunological findings in serum; Z79.899 Other long term (current) drug therapy | CPT/HCPCS: 80053; 85025; 85651; 86140 ==

== ENCOUNTER → 2022-03-05 08:36 | Outpatient (BNVA) | payer OTHER, SELFPAY | PROVIDERS: PCP Family Medicine; Visit Provider Family Medicine | DX: F32.9 Major depressive disorder, single episode, unspecified (principal); F41.9 Anxiety disorder, unspecified; R53.83 Other fatigue | CPT/HCPCS: 80053; 80061; 82306; 84443; 85027 ==

== ENCOUNTER 2023-02-05 15:37 | Emergency (ER) | payer OTHER, SELFPAY ==
[2023-02-05] VITALS (8 sets, daily range): BP systolic 127–154; BP diastolic 81–109; PULSE 90–95; RESP 16–22; O2SAT 96–98; BMI 44.4
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
[2023-02-05] MEDS: fentaNYL 50 mcg/mL INJ 2mL IVP (15:52)
[2023-02-05] MEDS: tetanus-dipt-pertussis 0.5 mL SDV IM (15:54)
[2023-02-05] MEDS: HYDROmorphone 1 mg/mL INJ 1 mL 0.5 MG IVP (17:01)
--- NOTE | 2023-02-05 19:01 | PC.NURSE ---
Addendum entered by Michelle Oliveira RN 02/05/23 19:02: pt has carlos placed to midline frontal scalp. Bleeding controlled at this time Original Note: lac tray with lidocaine at bedside
[2023-02-05] MEDS: HYDROmorphone 1 mg/mL INJ 1 mL IVP (19:46)
== END 2023-02-05 19:59 ==
PROVIDERS: Emergency Provider Emergency Medicine; PCP Family Medicine
DX: S01.01XA Laceration without foreign body of scalp, initial encounter (principal); S32.010A Wedge compression fracture of first lumbar vertebra, initial encounter for closed fracture; S32.020A Wedge compression fracture of second lumbar vertebra, initial encounter for closed fracture; S22.030A Wedge compression fracture of third thoracic vertebra, initial encounter for closed fracture; S22.040A Wedge compression fracture of fourth thoracic vertebra, initial encounter for closed fracture; S22.050A Wedge compression fracture of T5-T6 vertebra, initial encounter for closed fracture; W20.8XXA Other cause of strike by thrown, projected or falling object, initial encounter; Z23 Encounter for immunization
CPT/HCPCS: 12002; 70450; 72125; 72128; 72131; 90471; 90715; 96374; 96375; 96376; 99285; J1170; J3010

== ENCOUNTER → 2023-05-27 11:07 | Outpatient (BNVA) | payer OTHER, SELFPAY | PROVIDERS: PCP Family Medicine; Visit Provider Family Medicine | DX: D75.1 Secondary polycythemia (principal); F32.9 Major depressive disorder, single episode, unspecified; G43.711 Chronic migraine without aura, intractable, with status migrainosus; I10 Essential (primary) hypertension; R53.83 Other fatigue | CPT/HCPCS: 80053; 80061; 83036; 84443; 85025 ==

== ENCOUNTER → 2023-11-10 09:41 | Outpatient (BNVA) | payer OTHER, SELFPAY | PROVIDERS: PCP Family Medicine; Visit Provider Family Medicine | DX: I10 Essential (primary) hypertension (principal); R35.81 Nocturnal polyuria; G43.711 Chronic migraine without aura, intractable, with status migrainosus | CPT/HCPCS: 80053; 80061; 81003; 82672; 83001; 83036; 84443; 87077; 87086; 87184 ==

== ENCOUNTER → 2024-08-18 09:08 | Outpatient (BNVA) | payer OTHER, SELFPAY | PROVIDERS: PCP Family Medicine | DX: B34.9 Viral infection, unspecified (principal); J11.1 Influenza due to unidentified influenza virus with other respiratory manifestations; R11.2 Nausea with vomiting, unspecified; J02.9 Acute pharyngitis, unspecified | CPT/HCPCS: 87400; 87426 ==

== ENCOUNTER → 2024-11-29 13:30 | Outpatient (BNVA) | payer OTHER, SELFPAY | PROVIDERS: PCP Family Medicine; Visit Provider Family Medicine | DX: I10 Essential (primary) hypertension (principal); F41.9 Anxiety disorder, unspecified; F32.9 Major depressive disorder, single episode, unspecified; R79.89 Other specified abnormal findings of blood chemistry | CPT/HCPCS: 80053; 80061; 82607; 84443 ==